=== PATIENT | female | born 1955 | race Caucasian/White ===

== ENCOUNTER 2019-07-24 16:41 | Inpatient (IN) | payer MEDICARE, OTHER, MEDICAID ==
[2019-07-24] MEDS: ONDANSETRON 4 MG INJ IV (17:17)
[2019-07-24] MEDS: KETOROLAC 15 MG INJ IV (17:18)
[2019-07-24] MEDS: LACTATED RINGER'S 1,000 ML IV (17:18)
[2019-07-24] MEDS: LORAZEPAM 2 MG INJ IV ×2 (17:18→19:34)
[2019-07-24 17:21] LABS: ADD MAN DIFF? NO
[2019-07-24 17:27] LABS: ABNORMAL IP MESSAGE 1; BASOPHILS % 0.3 % (0.0-2.0); EOSINOPHILS % 0.5 % (0.0-7.0); HEMATOCRIT 38.2 % (37.0-47.0); HEMOGLOBIN 12.4 g/dl (12.0-16.0); LYMPHOCYTES # 0.7 10^3/ul (0.8-2.9); LYMPHOCYTES % 11.5 % (15.0-51.0); MEAN CORPUSCULAR HEMOGLOBIN 23.9 pg (29.0-33.0); MEAN CORPUSCULAR HGB CONC 32.5 g/dl (32.0-37.0); MEAN CORPUSCULAR VOLUME 73.6 fl (82.0-101.0); MONOCYTE # 0.3 10^3/ul (0.3-0.9); MONOCYTES % 4.7 % (0.0-11.0); NEUTROPHIL # 4.9 10^3/ul (1.6-7.5); NEUTROPHILS % 82.8 % (39.0-77.0); PLATELET COUNT 99 10^3/UL (140-415); RED BLOOD COUNT 5.19 10^6/ul (4.20-5.40); RED CELL DISTRIBUTION WIDTH 20.9 % (11.5-14.5)
[2019-07-24 17:27] LABS: WHITE BLOOD COUNT 5.9 10^3/ul (4.8-10.8)
[2019-07-24 17:32] LABS: POSITIVE DIFF @See below
[2019-07-24 17:42] LABS: ALANINE AMINOTRANSFERASE 46 IU/L (13-69); ALBUMIN 3.8 g/dl (3.3-4.9); ALKALINE PHOSPHATASE 182 IU/L (42-121); ANION GAP 11 (5-13); ASPARTATE AMINO TRANSFERASE 73 IU/L (15-46); BILIRUBIN,INDIRECT 2.9 mg/dl (0-1.1); BILIRUBIN,TOTAL 2.9 mg/dl (0.2-1.3); BLOOD UREA NITROGEN 14 mg/dl (7-20); CALCIUM 9.1 mg/dl (8.4-10.2); CARBON DIOXIDE 20 mmol/L (21-31); CHLORIDE 106 mmol/L (97-110); Estimated GFR > 60 mL/min (>60); GLUCOSE 261 mg/dl (70-220); LIPASE 118 U/L (23-300); POTASSIUM 4.2 mmol/L (3.5-5.1); SODIUM 137 mmol/L (135-144)
[2019-07-24 17:46] LABS: INR 1.05; PROTIME 13.8 Sec (11.9-14.9); PT RATIO 1.1
[2019-07-24 17:54] LABS: TROPONIN-I < 0.012 ng/ml (0.000-0.120)
[2019-07-24 18:33] LABS: ANISOCYTOSIS 1+ (0-0); BAND NEUTROPHILS % (M) 1 % (0-4); LYMPHOCYTES #M 0.9 10^3/ul (0.8-2.9); LYMPHOCYTES % (M) 16 % (15-51); MONOCYTE #M 0.1 10^3/ul (0.3-0.9); MONOCYTES % (M) 2 % (0-11); PLATELET ESTIMATE DECREASED; POIKILOCYTOSIS 1+ (0-0); SEG NEUT #M 4.8 10^3/ul (1.6-7.5); SEGMENTED NEUTROPHILS (M) % 81 % (39-77); SMUDGE%M 12 % (0-0)
[2019-07-24] MEDS: LIDOCAINE/MYLANTA 40 ML BTL PO (19:33)
[2019-07-24] MEDS: BELLADONNA/PHENOBARBITAL TAB PO (19:34)
[2019-07-24] MEDS ORDERED: ACETAMINOPHEN 325 MG TAB PO (21:00)
[2019-07-24] MEDS ORDERED: ALPRAZOLAM 0.25 MG TAB PO (21:00)
[2019-07-24] MEDS: ACCU-CHEK XX (21:54)
[2019-07-24] MEDS: BENAZEPRIL 20 MG TAB PO (23:57)
[2019-07-24] MEDS: GABAPENTIN 300 MG CAP PO (23:57)
[2019-07-24] MEDS: METOPROLOL 100 MG TAB PO (23:58)
[2019-07-25 05:19] LABS: ADD MAN DIFF? NO
[2019-07-25 05:22] LABS: WHITE BLOOD COUNT 3.1 10^3/ul (4.8-10.8)
[2019-07-25 05:22] LABS: ABNORMAL IP MESSAGE 1; BASOPHILS % 0.6 % (0.0-2.0); EOSINOPHILS # 0.1 10^3/ul (0.0-0.5); EOSINOPHILS % 1.9 % (0.0-7.0); HEMATOCRIT 31.7 % (37.0-47.0); HEMOGLOBIN 10.1 g/dl (12.0-16.0); LYMPHOCYTES # 0.7 10^3/ul (0.8-2.9); LYMPHOCYTES % 23.9 % (15.0-51.0); MEAN CORPUSCULAR HEMOGLOBIN 23.9 pg (29.0-33.0); MEAN CORPUSCULAR HGB CONC 31.9 g/dl (32.0-37.0); MEAN CORPUSCULAR VOLUME 74.9 fl (82.0-101.0); MONOCYTE # 0.3 10^3/ul (0.3-0.9); MONOCYTES % 8.1 % (0.0-11.0); NEUTROPHILS % 65.2 % (39.0-77.0); PLATELET COUNT 79 10^3/UL (140-415); RED BLOOD COUNT 4.23 10^6/ul (4.20-5.40); RED CELL DISTRIBUTION WIDTH 20.9 % (11.5-14.5)
[2019-07-25 05:24] LABS: POSITIVE DIFF @See below
[2019-07-25 05:47] LABS: ALANINE AMINOTRANSFERASE 53 IU/L (13-69); ALBUMIN 2.7 g/dl (3.3-4.9); ALBUMIN/GLOBULIN RATIO 0.79; ALKALINE PHOSPHATASE 127 IU/L (42-121); ANION GAP 4 (5-13); ASPARTATE AMINO TRANSFERASE 58 IU/L (15-46); BILIRUBIN,INDIRECT 2.4 mg/dl (0-1.1); BILIRUBIN,TOTAL 2.4 mg/dl (0.2-1.3); BLOOD UREA NITROGEN 20 mg/dl (7-20); CARBON DIOXIDE 25 mmol/L (21-31); CHLORIDE 107 mmol/L (97-110); CREATININE 0.53 mg/dl (0.44-1.00); Estimated GFR > 60 mL/min (>60); GLUCOSE 224 mg/dl (70-220); POTASSIUM 3.9 mmol/L (3.5-5.1); SODIUM 136 mmol/L (135-144); TOTAL PROTEIN 6.1 g/dl (6.1-8.1)
[2019-07-25 05:52] LABS: B-TYPE NATRIURETIC PEPTIDE 122 PG/ML (0-125)
[2019-07-25 05:59] LABS: ANION GAP 6 (5-13); BLOOD UREA NITROGEN 20 mg/dl (7-20); CALCIUM 8.1 mg/dl (8.4-10.2); CARBON DIOXIDE 24 mmol/L (21-31); CHLORIDE 107 mmol/L (97-110); CREATININE 0.52 mg/dl (0.44-1.00); Estimated GFR > 60 mL/min (>60); GLUCOSE 219 mg/dl (70-220); POTASSIUM 3.9 mmol/L (3.5-5.1); SODIUM 137 mmol/L (135-144)
[2019-07-25] MEDS: LEVOTHYROXINE 25 MCG TAB PO (06:15)
[2019-07-25] MEDS: PANTOPRAZOLE 40 MG INJ IV (06:15)
[2019-07-25] MEDS: ACCU-CHEK XX ×4 (07:00→20:45)
[2019-07-25] MEDS: METOPROLOL 100 MG TAB PO ×2 (08:04→20:35)
[2019-07-25] MEDS: BENAZEPRIL 20 MG TAB PO ×2 (08:05→20:35)
[2019-07-25] MEDS: GABAPENTIN 300 MG CAP PO ×2 (08:05→20:37)
[2019-07-25 09:53] LABS: HAAIG REFLEX REFLEX FILED
[2019-07-25] MEDS ORDERED: GLUCOSE GEL 15 GRAM TUBE PO ×2 (10:30)
[2019-07-25] MEDS ORDERED: GLUCAGON 1 MG INJ IM (10:30)
[2019-07-25] MEDS ORDERED: DEXTROSE 50% 50 ML SYRINGE IV ×2 (10:30)
[2019-07-25] MEDS ORDERED: GLUCOSE GEL 15 GRAM TUBE BUCCAL (10:30)
[2019-07-25] MEDS: DEXTROSE 5%-0.45% NACL 1,000 ML IV (11:25)
[2019-07-25] MEDS: INSULIN ASPART [NOVOLOG] 3 ML PEN SC ×3 (11:37→20:38)
[2019-07-25 12:25] LABS: HEPATITIS B SURFACE ANTIGEN NEGATIVE (NEGATIVE)
[2019-07-25 12:43] LABS: HEPATITIS B CORE ANTIBODY REACTIVE (NEGATIVE); HEPATITIS C VIRAL ANTIBODY NEGATIVE (NEGATIVE)
[2019-07-25] MEDS: INSULIN GLARGINE [LANTus] (100 UNITS/ML) SYG SC (20:39)
[2019-07-25] MEDS: ZOLPIDEM 5 MG TAB PO (23:07)
[2019-07-26] MEDS: ACCU-CHEK XX ×5 (02:00→21:00)
[2019-07-26] MEDS: HYDROCODONE/APAP (5/325) TAB PO ×3 (03:22→21:17)
[2019-07-26] MEDS: DEXTROSE 5%-0.45% NACL 1,000 ML IV (06:18)
[2019-07-26] MEDS: PANTOPRAZOLE 40 MG INJ IV (06:18)
[2019-07-26] MEDS: LEVOTHYROXINE 25 MCG TAB PO (06:23)
[2019-07-26] MEDS: INSULIN ASPART [NOVOLOG] 3 ML PEN SC ×4 (08:00→21:11)
[2019-07-26] MEDS: GABAPENTIN 300 MG CAP PO ×2 (08:49→21:08)
[2019-07-26] MEDS: METOPROLOL 100 MG TAB PO ×2 (08:52→21:08)
[2019-07-26] MEDS: BENAZEPRIL 20 MG TAB PO ×2 (08:52→21:08)
[2019-07-26] MEDS: INSULIN GLARGINE [LANTus] (100 UNITS/ML) SYG SC ×2 (10:05→21:10)
[2019-07-26] MEDS ORDERED: LIDOCAINE 2% (SDV) 5 ML INJ (12:00)
[2019-07-26] MEDS: CIPROFLOXACIN 400MG/D5W 200 ML (12:27)
[2019-07-26] MEDS ORDERED: FENTAnyl 50 MCG/ML VIAL (12:43)
[2019-07-26] MEDS: ONDANSETRON 4 MG INJ IV (12:57)
[2019-07-26] MEDS: FENTAnyl 50 MCG/ML VIAL IV (12:58)
[2019-07-27] MEDS: DEXTROSE 5%-0.45% NACL 1,000 ML IV ×2 (02:00→08:14)
[2019-07-27] MEDS: ACCU-CHEK XX ×5 (02:00→21:00)
[2019-07-27] MEDS: PANTOPRAZOLE 40 MG INJ IV (05:54)
[2019-07-27] MEDS: LEVOTHYROXINE 25 MCG TAB PO (05:59)
[2019-07-27 07:20] LABS: ADD MAN DIFF? NO
[2019-07-27 07:28] LABS: ABNORMAL IP MESSAGE 1; BASOPHILS % 0.6 % (0.0-2.0); EOSINOPHILS # 0.1 10^3/ul (0.0-0.5); HEMATOCRIT 35.3 % (37.0-47.0); HEMOGLOBIN 11.1 g/dl (12.0-16.0); LYMPHOCYTES # 1.4 10^3/ul (0.8-2.9); LYMPHOCYTES % 40.1 % (15.0-51.0); MEAN CORPUSCULAR HEMOGLOBIN 23.9 pg (29.0-33.0); MEAN CORPUSCULAR HGB CONC 31.4 g/dl (32.0-37.0); MEAN CORPUSCULAR VOLUME 75.9 fl (82.0-101.0); MONOCYTE # 0.4 10^3/ul (0.3-0.9); MONOCYTES % 10.6 % (0.0-11.0); NEUTROPHIL # 1.6 10^3/ul (1.6-7.5); NEUTROPHILS % 44.4 % (39.0-77.0); PLATELET COUNT 95 10^3/UL (140-415); RED BLOOD COUNT 4.65 10^6/ul (4.20-5.40); RED CELL DISTRIBUTION WIDTH 21.2 % (11.5-14.5)
[2019-07-27 07:28] LABS: WHITE BLOOD COUNT 3.5 10^3/ul (4.8-10.8)
[2019-07-27 07:31] LABS: POSITIVE DIFF @See below
[2019-07-27 07:49] LABS: B-TYPE NATRIURETIC PEPTIDE 210 PG/ML (0-125)
[2019-07-27 07:54] LABS: ANION GAP 4 (5-13); BLOOD UREA NITROGEN 12 mg/dl (7-20); CALCIUM 8.1 mg/dl (8.4-10.2); CARBON DIOXIDE 24 mmol/L (21-31); CHLORIDE 110 mmol/L (97-110); CREATININE 0.51 mg/dl (0.44-1.00); Estimated GFR > 60 mL/min (>60); GLUCOSE 161 mg/dl (70-220); POTASSIUM 3.5 mmol/L (3.5-5.1); SODIUM 138 mmol/L (135-144)
[2019-07-27] MEDS: GABAPENTIN 300 MG CAP PO ×2 (08:15→21:00)
[2019-07-27] MEDS: HYDROCODONE/APAP (5/325) TAB PO ×2 (08:15→23:24)
[2019-07-27] MEDS: METOPROLOL 100 MG TAB PO (08:20)
[2019-07-27] MEDS: BENAZEPRIL 20 MG TAB PO ×2 (08:20→21:00)
[2019-07-27] MEDS: INSULIN ASPART [NOVOLOG] 3 ML PEN SC ×4 (08:41→21:00)
[2019-07-27] MEDS: INSULIN GLARGINE [LANTus] (100 UNITS/ML) SYG SC ×2 (08:42→21:39)
[2019-07-27] MEDS: ONDANSETRON 4 MG INJ IV (09:29)
[2019-07-27 11:12] LABS: ASPARTATE AMINO TRANSFERASE 47 IU/L (15-46)
[2019-07-27 11:12] LABS: ALANINE AMINOTRANSFERASE 49 IU/L (13-69); ALKALINE PHOSPHATASE 107 IU/L (42-121)
[2019-07-27] MEDS: SUCRALFATE 1 GM TAB PO ×3 (13:00→21:37)
[2019-07-27] MEDS: METOCLOPRAMIDE 10 MG INJ IV (17:55)
[2019-07-27] MEDS: LIDOCAINE/MYLANTA 40 ML BTL PO (21:37)
[2019-07-28] MEDS: ACCU-CHEK XX ×4 (02:00→18:08)
[2019-07-28] MEDS: METOCLOPRAMIDE 10 MG INJ IV ×3 (06:00→17:30)
[2019-07-28] MEDS: PANTOPRAZOLE 40 MG INJ IV (06:00)
[2019-07-28] MEDS: LEVOTHYROXINE 25 MCG TAB PO (06:00)
[2019-07-28] MEDS: INSULIN ASPART [NOVOLOG] 3 ML PEN SC ×3 (08:00→18:00)
[2019-07-28] MEDS: GABAPENTIN 300 MG CAP PO (08:43)
[2019-07-28] MEDS: SUCRALFATE 1 GM TAB PO ×3 (08:43→18:08)
[2019-07-28] MEDS: BENAZEPRIL 20 MG TAB PO (08:45)
[2019-07-28] MEDS: HYDROCODONE/APAP (5/325) TAB PO (08:48)
[2019-07-28] MEDS: INSULIN GLARGINE [LANTus] (100 UNITS/ML) SYG SC (08:49)
[2019-07-28] MEDS: PROPOFOL 20 ML (08:52)
[2019-07-28 12:22] LABS: ALANINE AMINOTRANSFERASE 42 IU/L (13-69); ALBUMIN 2.6 g/dl (3.3-4.9); ALBUMIN/GLOBULIN RATIO 0.76; ALKALINE PHOSPHATASE 97 IU/L (42-121); ANION GAP 5 (5-13); ASPARTATE AMINO TRANSFERASE 42 IU/L (15-46); BILIRUBIN,INDIRECT 1.5 mg/dl (0-1.1); BILIRUBIN,TOTAL 1.5 mg/dl (0.2-1.3); BLOOD UREA NITROGEN 13 mg/dl (7-20); CALCIUM 8.1 mg/dl (8.4-10.2); CARBON DIOXIDE 24 mmol/L (21-31); CHLORIDE 109 mmol/L (97-110); CREATININE 0.52 mg/dl (0.44-1.00); Estimated GFR > 60 mL/min (>60); GLUCOSE 142 mg/dl (70-220); POTASSIUM 3.7 mmol/L (3.5-5.1); SODIUM 138 mmol/L (135-144)
[2019-07-29] MEDS ORDERED: PANTOPRAZOLE (EC) 40 MG TAB PO (06:00)
== END 2019-07-28 18:30 | disposition home or self-care (01) | DRG 433 ==
LOC: E/R 16:41 → 2NE 18:05
PROC: 06L38ZZ Occlusion of Esophageal Vein, Via Natural or Artificial Opening Endoscopic (ICD-10-PCS; principal; 2019-07-26 11:45)
PROC: 0DB68ZX Excision of Stomach, Via Natural or Artificial Opening Endoscopic, Diagnostic (ICD-10-PCS; 2019-07-26 11:45)
DX: K74.60 Unspecified cirrhosis of liver (principal); I85.10 Secondary esophageal varices without bleeding; D61.818 Other pancytopenia; R18.8 Other ascites; K80.20 Calculus of gallbladder without cholecystitis without obstruction; I10 Essential (primary) hypertension; E66.01 Morbid (severe) obesity due to excess calories; Z68.37 Body mass index [BMI] 37.0-37.9, adult; K29.70 Gastritis, unspecified, without bleeding; K29.80 Duodenitis without bleeding; E11.42 Type 2 diabetes mellitus with diabetic polyneuropathy; Z86.73 Personal history of transient ischemic attack (TIA), and cerebral infarction without residual deficits; K76.0 Fatty (change of) liver, not elsewhere classified; E03.9 Hypothyroidism, unspecified; K21.9 Gastro-esophageal reflux disease without esophagitis
CPT/HCPCS: 36415; 71045; 74181; 76705; 78226; 80048; 80053; 82962; 83690; 83880; 84075; 84450; 84460; 84484; 85025; 85610; 85730; 86704; 86709; 86803; 87340; 88305; 88312; 93005; 96361; 96374; 96375; 99285-25; G0378